=== PATIENT | female | born 1950 ===

== ENCOUNTER 2021-08-23 18:11 | Emergency (ER) | payer MEDICARE, MEDICAID, SELFPAY ==
--- NOTE | 2021-08-23 19:14 | NUR.NOTE ---
Nursing Note: Patient brought in by her daughter and a cousin to be admitted. They stated that the patient was seen by the PCP (in [place]) earlier that day and was told to be admitted to the hospital. Patient was highly anxious and belligerent in wheelchair, adamant that she would not come into the ER. 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 When asked if there was guardianship in place, the daughter and cousin said yes, that the other daughter, Roxie, was. Attempted to call Roxie a few times and was unable to reach her for approx 40 min. When this scribe spoke to Roxie, she stated she thought she may be the guardian and this scribe explained what guardianship entailed. Roxie stated that this was not what was in place. She believes that it may be power of civil attorney but patient continues to refuse to come in for any evaluation. I explained to both daughters and to cousin that we cannot force the patient to be evaluated against her will. Checked this with ER director, ER MD, powerhouse helper, and clinical research administrator secondary history teacher/healthcare risk control consultant Rick. All in agreement that the patient cannot be forced to be evaluated. Informed the family of this and they took patient to go to another hospital.
== END 2021-08-23 19:15 ==
PROVIDERS: PCP Physician Assistant Medical
DX: R69 Illness, unspecified (principal)